=== PATIENT | female | born 1955 | race Caucasian/White ===

== ENCOUNTER 2017-01-12 20:35 | Emergency (ER) | payer OTHER ==
[~2017-01-12] VITALS: Ht 162.6 cm; Wt 61.2 kg
[2017-01-12 20:39] VITALS: BP 127/84
--- NOTE | 2017-01-12 21:04 | ED INFLUENZA/URI COMPLAINT ---
History of Present Illness General Chief Complaint: Upper Respiratory Sx/Fever Stated Complaint: FLU LIKE S/S FEVER, CHILLS, COUGH, CONGESTION Source: patient Exam Limitations: no limitations Vital Signs & Intake/Output Vital Signs & Intake/Output Vital Signs Date Time Temp Pulse Resp B/P Pulse O2 O2 Flow FiO2 Ox Delivery Rate 01/12 2153 99.1 01/12 2039 99.5 97 18 127/84 98 Room Air ED Intake and Output 01/13 0000 01/12 1200 Intake Total Output Total Balance Patient 135 lb Weight Allergies Coded Allergies: Penicillins (ANAPHYLAXIS 01/12/17) Quinolones (TENDONS 01/12/17) Sulfa (Sulfonamide Antibiotics) (HEADACHE 02/13/16) doxycycline (RASH 02/13/16) epinephrine (HEART PALPITATIONS 01/12/17) Reconcile Medications Cholecalciferol (Vitamin D3) (Vitamin D) (Unknown Strength) TABLET (Unknown Dose) PO DAILY SUPPLEMENT (Reported) Propranolol HCl 10 MG TABLET 0.5 TAB PO Q12 PRN palpitations/anxiety Triage Note: PT TO TRIAGE WITH C/O FEVER, CONGESTION, COUGH, NAUSEA SINCE THURSDAY. ALSO CRISIS IN FAMILY ON THURSDAY AND PT FEELS DEVASTATED AND STRESSED. REQUESTING CRISIS EVAL. Triage Nurses Notes Reviewed? yes HPI: Patient is a 61 year old female presents complaining of cough, chest congestion, fevers. Symptoms onset on Thursday. Patient taking Sudafed and mucinex with mild improvement. Cough with sputum production. Fever up to 101 improved with Ibuprofen. Symptoms have been moderate to severe. Also reports that she found out that her was cheating on her on Thursday. since then patient has been having heart racing sensation, crying, depression and anxiety. Patient reports that she is not suicidal. Has her son and mother to live for. Has taken propranolol previously for performance anxiety and requesting a prescription to help with her symptoms. (MATTHIAS COWART,RAUL) Past History Travel History Traveled to [place] past 21 day No Medical History Any Pertinent Medical History? see below for history Neurological: NONE EENT: NONE Cardiovascular: NONE Respiratory: NONE Gastrointestinal: NONE Hepatic: NONE Renal: NONE Musculoskeletal: NONE Psychiatric: NONE Endocrine: NONE Blood Disorders: NONE Cancer(s): breast cancer Surgical History Surgical History: non-contributory Psychosocial History What is your primary language Occitan Tobacco Use: Never used Family History Hx Contributory? No (RAUL LOREDO) Review of Systems Review of Systems Constitutional: Reports: chills, fever. EENTM: Reports: nasal congestion. Denies: throat pain. Respiratory: Reports: cough, sputum production. Cardiovascular: Reports: palpitations. Denies: chest pain. GI: Denies: abdominal pain. Musculoskeletal: Reports: no symptoms. Skin: Reports: no symptoms. Neurological/Psychological: Reports: see HPI. Hematologic/Endocrine: Reports: no symptoms. Immunologic/Allergic: Reports: no symptoms. (RAUL LOREDO) Physical Exam Physical Exam General Appearance: alert, awake, anxious Head: atraumatic, normal appearance Eyes: Bilateral: normal appearance, PERRL, EOMI. Ears, Nose, Throat: normal ENT inspection, moist mucous membrane, hearing grossly normal, Tympanic normal, pharynx normal Neck: normal inspection, supple, full range of motion Respiratory: normal breath sounds, chest non-tender, no respiratory distress, lungs clear Cardiovascular: regular rate/rhythm (no appreciable murmur) Back: normal inspection, normal range of motion Extremities: normal inspection, normal capillary refill, normal range of motion, no edema Neurologic/Psych: awake, alert, oriented x 3, tearful at times. No suicidal ideation. Skin: intact, normal color, warm/dry Lymphatic: no anterior cervical poly Core Measures Severe Sepsis Present: No Septic Shock Present: No (RAUL LOREDO) Progress Differential Diagnosis: influenza, pneumonia, bronchitis, depression, anxiety, grief reaction, suicidal ideation Plan of Care: Orders Procedure Date/time Status EKG 01/12 2121 Active Patient declined emergency Department crisis evaluation. No suicidal ideation. Results of chest x-ray and EKG discussed with patient. (RAUL LOREDO) Diagnostic Imaging: Viewed by Me: Radiology Read. Discussed w/RAD: Radiology Read. Radiology Impression: PATIENT: AMERICA HERNANDEZ PRESENT AGE: 61 PATIENT ACCOUNT NO: [id number] : 55 LOCATION: [facility] ORDERING PHYSICIAN: RAUL COWART SERVICE DATE: 01/12/17 EXAM TYPE: RAD - XRY-CHEST XRAY, PA AND LATERAL EXAMINATION: CHEST 2 VIEWS CLINICAL INFORMATION: Cough, fever, congestion. COMPARISON: None. TECHNIQUE: PA and lateral views of the chest were obtained. FINDINGS: The cardiac silhouette is not enlarged. The mediastinal and hilar contours are unremarkable. There are neither pleural effusions nor pneumothoraces. There are no consolidations. The osseous structures are unremarkable. Surgical clips are present in the right axilla. IMPRESSION: No evidence for acute disease. DICTATED BY: ADOLPH FUENTES MD DATE/TIME DICTATED:01/12/172139 MOTION PICTURE FILM EXAMINER:CARMEN DATE/TIME TRANSCRIBED:01/12/172139 CONFIDENTIAL, DO NOT COPY WITHOUT APPROPRIATE AUTHORIZATION. <Electronically signed in Other Vendor System> SIGNED BY: ADOLPH FUENTES MD 01/12/172143 Initial ED EKG: normal sinus rhythm at 85 bpm normal axis intervals, no acute ST elevation or depression compared to previous EKG (RAUL LOREDO) Departure Departure Time of Disposition: 2212 Disposition: HOME OR SELF CARE Condition: Stable Clinical Impression Primary Impression: Grief reaction Secondary Impressions: Bronchitis Referrals: ELVIN SOLER,TRENT ASHLEY (PCP/Family) Additional Instructions: Drink plenty of fluids and rest. Ibuprofen(Motrin/Advil) 400mg every 6 hours as needed for fevers. Continue the Mucinex as directed. Follow up with your primary doctor if no improvement within 3-4 days. Return to the ER if worsening of symptoms. Departure Forms: Customer Survey General Discharge Information Prescriptions: Current Visit Scripts Propranolol HCl 0.5 TAB PO Q12 PRN palpitations/anxiety #10 TAB (RAUL LOREDO) PA/LEG MAN Co-Sign Statement Statement: ED Attending supervision documentation- [X] I saw and evaluated the patient. I have also reviewed all the pertinent lab results and diagnostic results. I agree with the findings and the plan of care as documented in the PA's/LEG MAN's documentation. [X] I have reviewed the ED Record and agree with the PA's/LEG MAN's documentation. [] Additions or exceptions (if any) to the PAs/LEG MAN's note and plan are summarized below: [] (JULIAN SOLER,EDGAR Feliciano)
--- NOTE | 2017-01-12 21:44 | RADIOLOGY REPORT ---
EXAMINATION: CHEST 2 VIEWS CLINICAL INFORMATION: Cough, fever, congestion. COMPARISON: None. TECHNIQUE: PA and lateral views of the chest were obtained. FINDINGS: The cardiac silhouette is not enlarged. The mediastinal and hilar contours are unremarkable. There are neither pleural effusions nor pneumothoraces. There are no consolidations. The osseous structures are unremarkable. Surgical clips are present in the right axilla. IMPRESSION: No evidence for acute disease.
[2017-01-12] MEDS ORDERED: PROPRANOLOL HCL10 M1 PO (22:17)
[2017-01-12] MEDS ORDERED: VITAMIN D2000 UNI1 PO (22:22)
== END 2017-01-12 22:48 ==
LOC: ERH 20:35
DX: J40 Bronchitis, not specified as acute or chronic (principal); F43.20 Adjustment disorder, unspecified
CPT/HCPCS: 93005; 93010